=== PATIENT | female | born 1960 | race Caucasian/White ===

== ENCOUNTER 2022-04-20 19:59 | Emergency (ER) | payer BC ==
[2022-04-20] MEDS ORDERED: traMADol HCl 50 MG TAB ONE (21:07)
== END 2022-04-20 21:16 | disposition home or self-care (01) ==
LOC: BURERS 19:59
DX: S93.402A Sprain of unspecified ligament of left ankle, initial encounter (principal); S93.602A Unspecified sprain of left foot, initial encounter; I10 Essential (primary) hypertension; E03.9 Hypothyroidism, unspecified; Z79.899 Other long term (current) drug therapy; X50.9XXA Other and unspecified overexertion or strenuous movements or postures, initial encounter